=== PATIENT | female | born 1985 | race Caucasian/White ===

== ENCOUNTER 2021-10-18 16:46 | Outpatient (REF) | payer MEDICAID, SELFPAY ==
[2021-10-20 12:40] LABS: COVID-19 RT-PCR UVMMC Result Negative (Negative)
== END 2021-10-18 16:47 | disposition home or self-care (01) ==
LOC: NCHCN 16:46
PROVIDERS: PCP Internal Medicine; Visit Provider Registered Nurse
DX: Z20.822 Contact with and (suspected) exposure to COVID-19 (principal); J31.0 Chronic rhinitis
CPT/HCPCS: U0003